=== PATIENT | male | born 1980 | race Caucasian/White ===

== ENCOUNTER → 2021-10-19 12:13 | Outpatient (BNVA) | payer OTHER, SELFPAY | PROVIDERS: Visit Provider Physician Assistant Medical | DX: S62.631A Displaced fracture of distal phalanx of left index finger, initial encounter for closed fracture (principal); W23.0XXA Caught, crushed, jammed, or pinched between moving objects, initial encounter; Z23 Encounter for immunization | CPT/HCPCS: 11740; 29130; 73140; 90715; 99203 ==

== ENCOUNTER → 2021-10-30 09:40 | Outpatient (BNVA) | payer OTHER, SELFPAY | PROVIDERS: Visit Provider Physician Assistant Medical | DX: S62.631D Displaced fracture of distal phalanx of left index finger, subsequent encounter for fracture with routine healing (principal); W23.0XXD Caught, crushed, jammed, or pinched between moving objects, subsequent encounter | CPT/HCPCS: 99213 ==

== ENCOUNTER → 2021-11-19 09:16 | Outpatient (BNVA) | payer OTHER, SELFPAY | PROVIDERS: Visit Provider Physician Assistant Medical | DX: S62.631D Displaced fracture of distal phalanx of left index finger, subsequent encounter for fracture with routine healing (principal); W23.0XXD Caught, crushed, jammed, or pinched between moving objects, subsequent encounter | CPT/HCPCS: 99213 ==

== ENCOUNTER → 2021-12-10 12:54 | Outpatient (BNVA) | payer OTHER, SELFPAY | PROVIDERS: Visit Provider Physician Assistant Medical | DX: S62.661D Nondisplaced fracture of distal phalanx of left index finger, subsequent encounter for fracture with routine healing (principal); W23.0XXD Caught, crushed, jammed, or pinched between moving objects, subsequent encounter | CPT/HCPCS: 99213 ==